=== PATIENT | female | born 1990 | race Caucasian/White ===

== ENCOUNTER 2016-09-22 09:49 | Emergency (ER) | payer MEDICAID ==
[~2016-09-22] VITALS: Ht 157.5 cm; Wt 54.4 kg
[2016-09-22] MEDS ORDERED: HYDROCODONE/APAP 5-325MG TABLET PO ONE (10:00)
[2016-09-22] MEDS ORDERED: TDAP DIPH,PERTUSS,TET VAC/PF 0.5 ML DISP.SYRIN IM ONE ×2 (10:15→10:16)
[2016-09-22] MEDS ORDERED: HYDROCODONE/APAP 5-325MG TABLET ONE (10:15)
--- NOTE | 2016-09-22 11:02 | NUR ---
Patient discharged to home in stable conditon. Written and verbal after care instructions given. Patient verbalizes understanding of instructions. Stressed follow up with pmd/ortho or return to ER for worsening s/s.
== END 2016-09-22 11:11 | disposition home or self-care (01) ==
LOC: ER 09:49
DX: S67.195A Crushing injury of left ring finger, initial encounter (principal); X58.XXXA Exposure to other specified factors, initial encounter; Y93.89 Activity, other specified; Y99.8 Other external cause status; Y92.89 Other specified places as the place of occurrence of the external cause
CPT/HCPCS: 73140; 90715; A4217; A4663